=== PATIENT | male | born 1990 ===

== ENCOUNTER 2021-05-22 17:27 | Emergency (ER) | payer SELFPAY ==
--- NOTE | 2021-05-22 17:36 | ED_ITS ---
HPI - Seizure General Chief Complaint: Seizure Stated Complaint: seizure Source: patient, EMS and police Mode of arrival: EMS Limitations: language barrier History of Present Illness HPI Narrative: 30-year-old male presents via EMS with police escort for suspected seizure. Patient was noted to have tonic clonic movements and brought into the ED for evaluation. MD complaint: seizure Onset (ago): hour(s) (Within the ER arrival) Description of Episode: tonic-clonic movement Witnessed: Yes - by Bystander Trauma: No Seizure History: Yes Place: Outdoors Associated symptoms: denies other symptoms Treatments prior to arrival: none Review of Systems Review of Systems: Constitutional: Positive witnessed tonic clonic movements, No Fever, No Chills ENT/Mouth: No Ear Pain, No Hoarseness, No sore throat Eyes: No Eye Pain, No Swelling, No Redness, No Foreign Body Cardiovascular: No Chest Pain, No SOB Respiratory: No Cough, No Dyspnea Gastrointestinal: No Nausea, No Vomiting, No Diarrhea, No abdominal Pain Genitourinary: No Dysuria, No Hematuria Musculoskeletal: No joint pain, No Myalgias, No Joint Swelling Skin: No Skin lacerations, No rash Neuro: No Weakness, No Numbness, No Paresthesias, No Loss of Consciousness, No Dizziness, No Headache Psych: No Anxiety/Panic, No Depression Heme/Lymph: no easy bruising, no Lymphadenopathy Endocrine: No Polyuria, No Polydipsia Yes all other systems are reviewed and are negative [facility] Past Medical History Attestation statement: The following information was validated with the patient. Source: old records reviewed Physical Exam Vital Signs: Vital Signs: Last Vital Signs Pulse 84 05/22/21 17:54 Resp 20 05/22/21 17:54 BP 120/87 05/22/21 17:54 Pulse Ox 99 05/22/21 17:54 BMI result Body Mass Index 20.5 Appearance: Alert. Oriented X3. No acute distress. Sin. Unkempt. Eyes: Pupils equal, round and reactive to light. No nystagmus noted. Sclera nonicteric. EOMI. ENT: Pharynx normal. Moist mucous membranes. Neck: Normal inspection. Neck supple. No vertebral tenderness or step-offs noted. CVS: Normal heart rate and rhythm. Apical pulse equal pulses to extremities. No edema noted. Respiratory: No respiratory distress. Breath sounds normal. Abdomen: Soft and nontender. Skin: Skin warm and dry. Normal skin color. Normal skin turgor. Extremities: No lower extremity edema. Moves all extremities against resistance. Neuro: No motor deficit. No sensory deficit. Cranial nerves 2-12 intact. Course Course Course Narrative: 30-year-old male presents via EMS with police escort for suspected seizure disorder. Patient is Barb[place] speaking, certified court interpreter at bedside. States that he has a known seizure disorder and takes Depakote and Keppra. Patient does not report any changes in vision, headaches, dizziness, lightheadedness, nausea, vomiting, diarrhea, constipation, dysuria, hematuria, abdominal pain, chest pain, or any other concerning symptoms. States that he would like to be discharged home and does not want any lab values are further testing because he feels like this is a normal seizure for him. I did inform him that we would observe him for a Min discharge him to home. 18:10 Patient is continuing to follow all directions, answering questions politely and appropriately at this time. Alert oriented x4. Neurovascularly intact. Gait is well balanced and well coordinated. Patient continues to request no further testing. Patient's wishes respected. Patient will be discharged home. MDM - Seizure Differential Diagnosis Differential diagnosis: Likely generalized seizure and epileptic seizure Medical Records Attestation: I reviewed the patient's medical records. Discharge Plan Discharge Clinical Impression: Epileptic seizure Patient Disposition: Home, Self-Care Instructions: Recurrent Seizures in Adults (ED) Additional Instructions: Usted fue evaluado por actividad convulsiva. Stephon un seguimiento con un m?dico de atenci?n primaria y/o un neur?logo para asegurarse de que agustina medicamentos se dosifiquen correctamente. Contin?e tomando agustina medicamentos seg?n las indicaciones. Trever por elegir ashley departamento de emergencias para knapp evaluaci?n. Por favor, stephon un seguimiento con el m?dico de atenci?n primaria seg?n sea nece sario. Regrese al departamento de emergencias por cualquier s?ntoma nuevo, preocupante o que empeore. You were evaluated for seizure activity. Please follow-up with primary care phy sician and/or neurologist to ensure your medications are properly dosed. Please continue to take your medications as directed. Thank you for choosing this emergency department for evaluation. Please follow-up with primary care physician as needed. Return to the emergency department for any new, concerning, or worsening symptoms.
[2021-05-22 17:54] VITALS: BP 120/87; PULSE 120; PULSE 84; RESP 20; O2SAT 100; O2SAT 99; BMI 20.5
== END 2021-05-22 18:45 | disposition home or self-care (01) ==
LOC: HO.ED 18:26
PROVIDERS: Emergency Provider Internal Medicine
DX: G40.909 Epilepsy, unspecified, not intractable, without status epilepticus (principal); Z79.899 Other long term (current) drug therapy
CPT/HCPCS: 99282; 99283